=== PATIENT | male | born 1960 | race Caucasian/White ===

== ENCOUNTER → 2024-05-09 07:48 | Outpatient (CLI) | payer OTHER, SELFPAY ==
--- NOTE | 2024-05-09 07:50 | DI.ECHO.S_ITS ---
[facility]+ [facility] : : [address] : : [place] : : [id number] : : Phone: [phone] Echocardiogram Report + + :Name: KRISHAN HERMAN Study Date: 05/09/2024 Height: 69 in : :Hospital ReadingLocation: Weight: 145 lb : : Gender: Male BSA: 1.8 m2 : :: 1960 Age: 63 yrs BP: 107/69 mmHg: :Reason For Study: CHEST PAIN : :Ordering Physician: GARRY, : :LORENE Gilliam Performed By: Malorie Vicente : :Referring: LORENE JACKSON : + + Interpretation Summary The ejection fraction is estimated to be 45-50%. Grade I diastolic dysfunction. The left atrium is mildly dilated. The right ventricle is normal size. The apex of the right ventricle appears hypokinetic. Right ventricular systolic function is mildly reduced. There is mild mitral regurgitation. There is mild aortic regurgitation. There is mild tricuspid regurgitation. Pulmonary artery pressures cannot be estimated because of the lack of a measurable TR jet velocity but the IVC suggests a CVP of around 3 mmHg. Procedure: A two-dimensional transthoracic echocardiogram with color flow and Doppler was performed. The study quality was technically adequate. There is no prior echocardiogram noted for this patient. The patient was in sinus bradycardia with heart rates between 55-64 bpm during the exam. Left Ventricle: The left ventricle is normal in size and wall thickness. The ejection fraction is estimated to be 45-50%. Diastolic parameters suggest a relaxation abnormality of the left ventricle, consistent with probable normal filling pressures. Right Ventricle: The right ventricle is normal size. Right ventricular systolic function is mildly reduced. The apex of the right ventricle appears hypokinetic. Atria: The left atrium is mildly dilated. The right atrium is moderately dilated. The interatrial septum is thin and hypermobile. The atrial septum is aneurysmal. Mitral Valve: The mitral valve leaflets appear to open well. There is mild mitral regurgitation. Aortic Valve: The aortic valve is trileaflet. The aortic valve opens well. There is no aortic valve stenosis. There is mild aortic regurgitation. Tricuspid Valve: The tricuspid valve leaflets are thin and pliable. There is mild tricuspid regurgitation. Pulmonary artery pressures cannot be estimated because of the lack of a measurable TR jet velocity but the IVC suggests a CVP of around 3 mmHg. Pulmonic Valve: The pulmonic valve is not well visualized. There is no pulmonic valvular regurgitation. Great Vessels: The aortic root is normal size. The dimensions of the ascending aorta are normal. The IVC is of normal diameter and collapses greater than 50% with a sniff. This suggests a low right atrial pressure of 3 mm Hg. Pericardium/ Pleura There is no pericardial effusion. There is no pleural effusion. MMode/2D Measurements & Calculations LVIDd: 5.0 cm LVOT diam: 2.1 cm LVIDs: 3.8 cm Ao root diam: 2.8 cm FS: 22.8 % asc Aorta Diam: 3.0 cm EPSS: 0.76 cm Ao Arch Diam (Prox Trans): 2.0 cm IVSd: 0.50 cm LVPWd: 0.69 cm LV pinzon. diameter/BSA (cm/m^2): 2.8 LV sys. diameter/BSA (cm/m^2): 2.1 LA A2 area: 22.8 cm2 RA long axis: 5.8 cm LA A4 area: 22.5 cm2 RA area: 21.3 cm2 LA length (vol): 6.2 cm RA vol: 65.7 ml LA vol: 70.5 ml RA : 36.5 ml/m2 LA vol index: 39.1 ml/m2 IVC diam: 1.9 cm RVD1 (basal): 3.3 cm RVD2 (mid): 2.3 cm TAPSE: 2.0 cm Doppler Measurements & Calculations Ao V2 max: 95.7 cm/sec LVOT Max Sheldon: 70.4 cm/sec Ao V2 mean: 67.3 cm/sec LV V1 max P.0 mmHg Ao max P.7 mmHg LV V1 VTI: 16.2 cm Ao mean P.0 mmHg BE(I,D): 2.4 cm2 Ao V2 VTI: 22.1 cm BE(V,D): 2.4 cm2 sev ratio: 0.73 BE indexed to BSA (cm^2/m^2): 1.3 MV E max hseldon: 42.3 cm/sec TR max sheldon: 219.8 cm/sec MV A max sheldon: 39.1 cm/sec TR max P.3 mmHg MV E/A: 1.1 PA V2 max: 51.7 cm/sec Med Peak E' Sheldon: 7.0 cm/sec PA V2 mean: 34.8 cm/sec E/E' med: 6.0 PA mean P.56 mmHg Lat Peak E' Sheldon: 11.1 cm/sec PA pr(Accel): 31.0 mmHg E/E' lat: 3.8 E/e' average: 4.9 MV dec time: 0.14 sec Pulm A Revs Sheldon: 24.9 cm/sec SV(LVCONSTANTINE): 53.5 ml Pulm A Revs Dur: 0.09 sec Reading Physician:01:59 PM
--- NOTE | 2024-05-09 16:18 | DI.NM.S_ITS ---
DATE OF SERVICE: 05/09/2024 PROCEDURE: Exercise stress test. INDICATIONS: Chest pain. CARDIAC STRESS: Patient underwent exercise stress test under the supervision of an attending staff. He walked on [place] protocol for 10 minutes and achieved maximum heart rate of 155, which was 99% of target heart rate. Resting blood pressure 102/60 and peak blood pressure 160/90 mmHg. ALICE -22%. 12.8 METS of workload. Baseline rhythm sinus with mild sinus bradycardia, left anterior fascicular block, and heart rate 54 beats per minute. Resting some isolated PVCs. During stress, no convincing ischemic changes seen. No significant PVCs during exercise; however, isolated PVCs reappeared in recovery. No ventricular tachycardia. No chest pain. Had some shortness of breath. CONCLUSION: Exercise stress test is negative for inducible ischemia. Excellent exercise tolerance. Normal hemodynamic response. Resting isolated PVCs which got suppressed during exercise however reappeared in recovery. No ventricular tachycardia. No anginal symptoms. Overall, low-risk exercise stress test. Israel Granda - [place]/dorys/CRYSTAL doc#: [id number]/job#: [id number] dd: 05/09/2024 12:56:00 dt: 05/09/2024 16:08:00 DICTATING MD/COPIES TO: Adboulaye Calles MD COPIES MNE: VINNY;
== END ==
LOC: NUCM 07:49
PROVIDERS: Referring Provider Internal Medicine Cardiovascular Disease; Visit Provider Internal Medicine Cardiovascular Disease
DX: R07.9 Chest pain, unspecified (principal); I49.3 Ventricular premature depolarization; I51.7 Cardiomegaly; I34.0 Nonrheumatic mitral (valve) insufficiency; I35.1 Nonrheumatic aortic (valve) insufficiency; I07.1 Rheumatic tricuspid insufficiency
CPT/HCPCS: 93017; 93306

== ENCOUNTER → 2024-08-01 10:43 | Outpatient (CLI) | payer OTHER, SELFPAY | PROVIDERS: Visit Provider Urology | DX: N13.8 Other obstructive and reflux uropathy (principal); N40.1 Benign prostatic hyperplasia with lower urinary tract symptoms; R97.20 Elevated prostate specific antigen [PSA]; Z77.22 Contact with and (suspected) exposure to environmental tobacco smoke (acute) (chronic) | CPT/HCPCS: 87086; 99214 ==

== ENCOUNTER 2024-08-08 12:00 | Day surgery (SDC) | payer OTHER, SELFPAY ==
[2024-08-04 15:14] VITALS: BMI 21.4
[2024-08-08] VITALS (8 sets, daily range): BP systolic 111–150; BP diastolic 65–82; PULSE 58–75; RESP 10–16; TEMP 36.1–36.7; O2SAT 95–100; BMI 21.4
--- NOTE | 2024-08-08 | PATH_ITS ---
[facility] Accession Number: [id number] No. of containers..01 Tissue . 01 Material submitted: . prostate - PROSTATE CHIPS . 01 Diagnosis: PROSTATE, TURP: Benign prostatic parenchyma with features consistent with benign prostatic hyperplasia. Negative for malignancy. [facility] 08/11/2024 1031 Local . 01 Electronically signed: . Dio Barcenas MD, PhD, Pathologist NPI- [id number] . 01 Gross description: . Received in formalin with two identifiers and prostate chips, are multiple forte soft tissue fragments admixed with a small amount of hemorrhagic material weighing 4 grams and aggregating to 4.8 x 4.3 x 1.0 cm. Submitted entirely in A1-A4. ([id number]) /MRV 08/10/2024 1825 Local . 01 Pathologist provided ICD-10: N40.1 . 01 CPT . 071816 Specimen Comment: A courtesy copy of this report has been sent to [phone] Performed at: [address] [id number] MD Simone Santana MD Phone: [phone]
[2024-08-08] MEDS: LACTATED RINGERS 1,000 ML 21 ML IV (12:58)
[2024-08-08] MEDS: CEFAZOLIN 2 GM/100 ML PREMIX 100 ML IV (13:50)
--- NOTE | 2024-08-08 14:07 | SUR.OPER ---
Lithotomy on padded OR bed, head on pillow, arms secured on padded arm boards at <90 degrees abduction. Legs secured in padded yellow fins stirrups.
--- NOTE | 2024-08-08 15:43 | PM.OP.1 ---
Operative Date/Time/Diagnoses Date of procedure: 08/08/24 Time of procedure: 15:43 Pre-op diagnosis: BPH with LUTS failing medical management Post-op diagnosis: same Procedure & Clinicians Procedure: 1. Aquablation 2. Transrectal ultrasound of prostate benign 3. Transurethral resection of prostate with fulguration 4. Placement of Jeter catheter Same procedure as scheduled: Yes Indications: This 63-year-old male who presented with complaints of worsening benign prostatic hyperplasia with LUTS on medical therapy. He underwent workup and had a AUA symptom score of 25-28, a very high bothersome index, Q max of 3.9 and a prostate in the 45 g range. At cystoscopy he had trilobar obstruction and presents at this time for Aquablation to treat his urinary symptoms. Surgeon: Agapito Dempsey Click Yes if Unassisted: Yes Anesthesia Type: General Operative Notes Findings: Findings: At cystoscopy urethral meatus is normal urethra is normal along its length, sphincter as well coapted. The prostate exhibits marked obstructive character with a median lobe primarily based on the patient's right posterior prostate. Ureteral orifices in normal position with clear efflux and were unaffected at the end of the procedure. Prostatic fossa was widely patent and patient had a vigorous stream after the procedure. At ultrasound the patient was noted to have the median lobe there were a few cysts in the prostate as well as a few calcifications. The outlined the prostate was preserved and there were no hypoechoic lesions. The prostate it previously been measured in the 45 g range. At the end of the procedure again the prostatic fossa was widely patent patient had a vigorous stream and a [address] [place] [address] hematuria catheter was left in place with 45 cc in the balloon. It was connected to continuous bladder irrigation which was running Closure Type: not applicable Specimen(s): other (Prostate chips) Prosthetic devices, grafts, tissues, transplants, or devices: [address] [place] [address] catheter with 45 cc in the balloon left in the urethra and bladder. Estimated Blood Loss (mL): 10 Blood products transfused: none Procedure in detail: Procedure in detail: After informed consent was obtained, the patient was identified brought to the operating room wears place a supine position on the table. Once there anesthesia was induced to maintain. Ensuring an adequate level of anesthesia patient was transitioned to the lithotomy position where he was prepped. After prepping, IV antibiotics, ensuring an adequate level of anesthesia and time-out ultrasound probe was inserted in the following fashion. The ultrasound probe which had been attached to the truss stepper which was attached to the articulating arm which was secured to the bed was inserted into the rectum after 60 cc of ultrasound gel. The ultrasound probe was then aligned and confirmed to be in the midline with the prostate centered and aligned using both the transverse and sagittal views. The position of the bladder neck verumontanum the peripheral and transition zones were all noted. With the ultrasound probe aligned and inappropriate position the patient was draped in his sterile fashion. At this point the 24 Mauritanian aqua beam handpiece was attempted to be inserted however the meatus was too small so it was dilated from 24-28 Mauritanian with Oscar sounds and then the meatus easily accepted the 24 Mauritanian aqua beam handpiece. This was inserted through the urethra prostate and end of the bladder under direct vision cystoscopy was performed position of the external sphincter, verumontanum, bladder neck and ureteral orifices were noted both under direct vision and via live ultrasound which was performed continuously throughout the procedure. With the Aquablation handpiece advanced into the bladder the aqua beam handpiece was secured to the articulating arm which was secured to the bed. The Aquablation handpiece and truss probe were confirmed to be parallel and colinear. The Aquablation nodule was confirmed to be in the bladder over the bladder neck and median lobe. With these things being true the cystoscope was then retracted in the prostate prostatic fossa verumontanum and external sphincter were visualized. The tip of the cystoscope was then position just proximal to the external sphincter. The alignment of the truss probe and Aquablation handpiece was once again confirmed and compression applied via the truss probe. Horizontal alignment of the handpiece water jet was then confirmed. The treatment planning was then performed in the following fashion. The ultrasound was used and a real-time fashion to visualize the contour and ?zones of the prostate?. In the transverse you the depth of the resection as well as the radial angles were defined and programmed in. In the sagittal view the aqua beam nozzle was identified and registered with the software. Length of treatment to the tip of the scope was then also registered. With this being true in the sagittal view the contours resection from the median lobe to the tip of the scope were then determined. To include start of resection, bladder neck, mid prostate, tip of scope. These were then adjusted and with these confirmed in ensuring that the patient would not move the aqua beam was activated and the prostate resected via the treatment. A 2nd pass was performed after adjustment of the contours. Total Aquablation time was approximately 8 minutes and the total procedure time approximated 1 hour. With the prostate seeming well resected as well as the median lobe the cystoscope was advanced to the tip of the hand piece and the scope was ?looked out?. With the scope out the resectoscope was then passed through the urethra prostate and in the bladder under direct vision. Once within the bladder and Ellik evacuator was used to evacuate the bladder and clot. The resecting loop and working element were then inserted the ureteral orifices were identified and the bladder neck was resected from the 2 to 10 o'clock position. Including the remaining portion of the median lobe. Points of bleeding were controlled with the electrocautery. Anteriorly there was some active bleeding that has at the 12 o'clock position that was controlled from the bladder neck to the verumontanum. There was a small bridge of tissue just in front of the verumontanum which was resected as well as a small amount of posterior apical tissue that was resected. Points of bleeding were once again controlled with the electrocautery. Ellik evacuator was then employed to evacuate clot, prostate chips and a clear the bladder. Scope was reinserted in the last few bleeding points were controlled. The prostatic fossa appeared widely patent and the bladder was filled the scope was removed and the patient had a vigorous stream. The 24 Mauritanian hematuria catheter was then passed with the aid of a catheter guide under ultrasound guidance into the bladder the balloon was filled 45 cc of sterile water and placed to gravity drainage and continuous bladder irrigation. At this point with the patient having tolerated the procedure well he was awakened and transferred to the postanesthesia care unit with continuous bladder irrigation running. He will be recovered in the postanesthesia care unit. There were no complications Complications: none Post-operative Condition: stable Disposition: PACU Plan for aftercare: Patient we will be recovered in the postanesthesia care unit his urine looked light pink in color as long as this remains true he will be discharged to home as long as the continuous bladder irrigation can be weaned off if not he will be brought in for perhaps a 23 hour stay.
[2024-08-08] MEDS: PHENAZOPYRIDINE 100 MG TABLET 200 MG PO (16:07)
[2024-08-08] MEDS: OXYBUTYNIN 5 MG TABLET PO (16:07)
[2024-08-08] MEDS: MEPERIDINE 50 MG/ML INJ 12.5 MG IV (16:21)
== END 2024-08-08 17:07 | disposition home or self-care (01) ==
PROVIDERS: Referring Provider Urology; Visit Provider Urology
PROC: 0VT08ZZ Resection of Prostate, Via Natural or Artificial Opening Endoscopic (ICD-10-PCS; CPT 52597; principal; 2024-08-08 13:45)
DX: N40.1 Benign prostatic hyperplasia with lower urinary tract symptoms (principal); N13.9 Obstructive and reflux uropathy, unspecified; R39.12 Poor urinary stream; R33.9 Retention of urine, unspecified; N42.0 Calculus of prostate; N42.83 Cyst of prostate
CPT/HCPCS: 0421T; C2596; J0690; J1100; J2175; J2405; J2704; J3010; J3490

== ENCOUNTER → 2024-08-10 14:19 | Outpatient (CLI) | payer OTHER, SELFPAY | PROVIDERS: Visit Provider Urology | DX: R39.9 Unspecified symptoms and signs involving the genitourinary system (principal) | CPT/HCPCS: 87086 ==

== ENCOUNTER → 2024-08-17 16:45 | Outpatient (CLI) | payer OTHER, SELFPAY ==
[2024-08-17 17:01] LABS: Appearance Urine UA CLOUDY
[2024-08-17 17:13] LABS: Color Urine UA ORANGE; Urine Volume 10mL (spun)
[2024-08-17 17:14] LABS: Bacteria Urine Moderate (10-30); Culture Indicated Urine Specimen Cultured; RBC Urine >100/HPF (0-5/HPF); Squamous Epithelial Cell Urine 0-1 /HPF (0-5/HPF); WBC Urine 30-100/HPF (0-5/HPF)
== END ==
LOC: LAB 16:45
PROVIDERS: Visit Provider Urology
DX: R39.9 Unspecified symptoms and signs involving the genitourinary system (principal)
CPT/HCPCS: 81001; 87086

== ENCOUNTER → 2024-08-21 16:35 | Outpatient (CLI) | payer OTHER, SELFPAY | PROVIDERS: Referring Provider Urology; Visit Provider Urology | DX: R39.9 Unspecified symptoms and signs involving the genitourinary system (principal) | CPT/HCPCS: 87077; 87086; 87186 ==

== ENCOUNTER 2024-09-06 09:42 | Day surgery (SDC) | payer OTHER, SELFPAY ==
[2024-09-06] VITALS (7 sets, daily range): BP systolic 90–117; BP diastolic 54–69; PULSE 58–78; RESP 12–17; TEMP 36.3; O2SAT 94–99; BMI 21.4
[2024-09-06] MEDS: LACTATED RINGERS 1,000 ML 42 ML IV (10:45)
--- NOTE | 2024-09-06 10:48 | PM.HP.IH.1 ---
History of Present Illness History of Present Illness Date Patient Seen: 09/06/24 Chief complaint: Screening Colonoscopy Narrative: History of colon polyps last colonoscopy about 5 years ago PFSH Medical History BPH with obstruction/lower urinary tract symptoms Rising PSA level Benign prostatic hyperplasia Secondhand smoke exposure Family history of prostate cancer Lower urinary tract symptoms History of BPH Surgical History Hx of vasectomy Hx of circumcision Family History Father Cancer Social History marital status: number of children: 2 household members: spouse occupational status: previously employed and other Smoking Status: Never smoker alcohol intake: never caffeine: No Type(s) of exercise: swimming and running frequency: 3-4 times per week duration: > 90 minutes/day Meds Home Medications and Allergies Home Medications Medication Instructions Recorded Confirmed Type tamsulosin 0.4 mg capsule 0.4 mg PO DAILY 10/19/22 08/21/24 History nitrofurantoin 100 mg PO BID #14 caps 08/21/24 08/21/24 Rx monohydrate/macrocrystals 100 mg capsule Allergies Allergy/AdvReac Type Severity Reaction Status Date / Time PPD converter Allergy Unknown Uncoded 08/21/24 14:25 Exam Vital Signs (past 8 hours): - 09/06/24 10:41 Temperature 97.4 F L Pulse Rate 70 Respiratory Rate 14 Blood Pressure 117/66 Pulse Oximetry 99 Oxygen Delivery Method Room Air Oxygen Delivery Method Room Air Narrative Exam Narrative: Oropharynx free of lesions Chest clear to auscultation percussion Cardiac exam reveals no S3 or murmur Assessment & Plan Assessment & Plan narrative: History of recurrent polyps need for follow-up colonoscopy. Risks, benefits, alternatives have been explained. Time-Based Coding :: [TOTAL MINUTES] spent with patient and on the chart (including review of chart, obtaining history, exam, reviewing outside data, placing orders, documenting exam and treatment plan, and counseling patient) on [DATE]. [employer]EE [employer] Operator Document charge(s): No
--- NOTE | 2024-09-06 10:49 | PM.OP.COLON ---
Operative Date/Time/Diagnoses Date of procedure: 09/06/24 Time of procedure: 12:08 Pre-op diagnosis: See indication and findings Post-op diagnosis: same Procedure & Clinicians Study performed: Colonoscopy Same procedure as scheduled: Yes Indications: Follow-up colon polyps Surgeon: Mikael Valadez Procedure Notes Procedure in detail: After informed consent was obtained the patient was placed in left lateral decubitus position. The video colonoscope was introduced the rectum slowly advanced cecum. Preparation was good. On slow withdrawal mucosa was carefully examined. The scope was removed. The patient tolerated procedure well. Blood loss none Complications none Sedation mac Findings 1. Normal colonoscopy to cecum Patient should have follow-up colonoscopy in 5 years
== END 2024-09-06 12:30 | disposition home or self-care (01) ==
PROVIDERS: Referring Provider Internal Medicine Gastroenterology; Visit Provider Internal Medicine Gastroenterology
PROC: 0DJD8ZZ Inspection of Lower Intestinal Tract, Via Natural or Artificial Opening Endoscopic (ICD-10-PCS; CPT 45378; principal; 2024-09-06 11:00)
DX: Z12.11 Encounter for screening for malignant neoplasm of colon (principal); Z86.0100 Personal history of colon polyps, unspecified
CPT/HCPCS: 45378; J2704

== ENCOUNTER → 2024-09-07 08:42 | Outpatient (CLI) | payer OTHER, SELFPAY | PROVIDERS: Visit Provider Urology | DX: N40.1 Benign prostatic hyperplasia with lower urinary tract symptoms (principal); N13.8 Other obstructive and reflux uropathy | CPT/HCPCS: 51798; 81002; 87077; 87086; 87186 ==